=== PATIENT | male | born 1965 | race Caucasian/White ===

== ENCOUNTER 2022-01-22 04:13 | Inpatient (IN) ==
[2022-01-22] MEDS ORDERED: SODIUM CHLORIDE 0.9% 1000ML 1,000 ML IV ONE (04:27)
[2022-01-22] MEDS ORDERED: LORazepam 1 MG/2 ML VIAL IV STA (04:27)
[2022-01-22] MEDS ORDERED: STAT IV Infusion **Titration per Protocol STA (04:27)
--- NOTE | 2022-01-22 04:33 | Emergency Department Note ---
History of Present Illness General Chief complaint: Cardiac Assessment Stated complaint: AFIB Time Seen by Provider: 01/22/22 04:15 Source: patient Mode of arrival: EMS Limitations: no limitations History of Present Illness Provider complaint: Palpitations Onset (ago): hour(s) 2 Associated symptoms: + chest pain and + diaphoresis; no fever/chills, no malaise, no nausea/vomiting, no shortness of breath or no syncope Treatments prior to arrival: other This is a 56-year-old male who presents emergency department via EMS due to concern for palpitations and rapid heart rate. EMS did call for medical command while in route as they found the patient to be in atrial fibrillation with a rapid ventricular response and requested to give the patient Cardizem in route. Patient states he seemed restless and was having a difficult time trying to go to sleep. At 2 AM he noticed a sense of racing heart and palpitations and when attempting to check his own pulse, he found it to be very elevated. Patient states he had some mild chest discomfort, no accompanying shortness of breath. Patient states he felt slightly dizzy and diaphoretic. Denies nausea or vomiting. Patient denies any recent fevers, chills, or illness. Patient states he had a similar episode which did not last this long 2 years ago. He states at that time he was told he had "holiday heart". Patient states he did consume alcohol Saturday and Saturday to the point of being drunk each night. Patient denies any use of alcohol today. Patient states he does feel shaky. Patient states after the first episode he did not have any additional follow-up with cardiology. Patient states there is a significant family history of heart problems. Patient denies any recent change in his medications or diet. Denies caffeine consumption. Pt seen during a time of high acuity and national emergency pandemic while wearing PPE. Home Medications Medication Instructions Recorded Confirmed Type aspirin 81 mg tablet,delayed 81 mg PO DAILY 01/22/22 01/22/22 History release citalopram 20 mg tablet 20 mg PO DAILY 01/22/22 01/22/22 History folic acid 400 mcg tablet 400 mcg PO DAILY 01/22/22 01/22/22 History irbesartan 150 mg tablet 150 mg PO DAILY 01/22/22 01/22/22 History niacin 400 mg (inositol niacinate 1 cap PO DAILY 01/22/22 01/22/22 History 500 mg) capsule (Niacin Flush Free) omeprazole 40 mg capsule,delayed 40 mg PO DAILY 01/22/22 01/22/22 History release folic acid 1 mg tablet 1 mg PO QAM #30 tab 01/23/22 Rx metoprolol succinate 50 mg 50 mg PO DAILY #30 tab 01/23/22 Rx tablet,extended release 24 hr thiamine HCl (vitamin B1) 50 mg 50 mg PO QAM #30 tab 01/23/22 Rx tablet (Vitamin B-1) Allergies Allergy/AdvReac Type Severity Reaction Status Date / Time Penicillins Allergy Unknown RASH Verified 01/22/22 07:00 Sulfa (Sulfonamide Allergy Unknown RASH Verified 01/22/22 07:00 Antibiotics) Past Med/Surg History Medical History GERD (gastroesophageal reflux disease) Hypertension Social History Smoking Status: Never smoker Second Hand Exposure: Yes; Hx Alcohol Use: Yes Alcohol type: beer Hx Substance Use: No Preferred Language: Maldivian Communication Ability: Effective Political Advisor Required: No Beliefs That Will Affect Care: None marital status: Current Living Situation: Spouse How many Children do You have: 0 Feels Safe at Home: Yes Assistive Devices: None Review of Systems A total of 10 systems reviewed and were otherwise negative All systems reviewed & are unremarkable except as noted in HPI & below Physical Exam GENERAL: alert, well appearing, well nourished, no distress, non-toxic EYE EXAM: normal conjunctiva, PERRL and EOM's grossly intact OROPHARYNX: no exudate, no erythema, lips, buccal mucosa, and tongue normal and mucous membranes are moist NECK: supple, no nuchal rigidity, no adenopathy, non-tender LUNGS: Clear to auscultation. Normal chest wall mechanics, no w/r/r HEART: no murmurs, S1 normal and S2 normal, tachycardia noted on telemetry that appears to be atrial fibrillation ABDOMEN: abdomen soft, non-tender, normo-active bowel sounds, no masses, no rebound or guarding. BACK: Back is symmetrical on inspection and there is no deformity, no midline tenderness, no CVA tenderness. SKIN: no rashes and no bruising UPPER EXTREMITIES: upper extremities are grossly normal. FROM, nml pulses b/l. LOWER EXTREMITIES: No pitting edema. FROM, nml pulses b/l. NEURO EXAM: Normal sensorium, cranial nerves II-XII grossly intact, normal speech, no gross weakness of arms, no gross weakness of legs. Patient appears tremulous. Gross sensation intact. Course Administered Medications Discontinued Medications Folic Acid (Folic Acid 1 Mg Tab) 1 mg PO QAM [facility] Stop: 02/21/22 08:59 Last Admin: 01/23/22 08:01 Dose: 1 mg Documented by: [id number] Admin: 01/22/22 10:23 Dose: 1 mg Documented by: [id number] Heparin Sodium (Porcine) (Heparin Sod (Porcine) 1000 Unit/Ml) 4,000 units IV NOW ONE Stop: 01/22/22 06:31 Last Admin: 01/22/22 06:45 Dose: 4,000 units Documented by: [id number] Cosigned by: [id number] Heparin Sodium (Porcine) (Heparin Sod (Porcine) 1000 Unit/Ml) Confirm Administe red Dose 1,000 units .ROUTE .STK-MED ONE Stop: 01/22/22 14:33 Last Admin: 01/22/22 14:33 Dose: 3,000 units Documented by: [id number] Cosigned by: [id number] Heparin Sodium/Dextrose (Heparin Iv Adult Wt-Based Low-Dose With Bolus Protocol) 1 ea N/A NOW [facility]; Protocol Stop: 01/22/22 05:53 Last Admin: 01/22/22 06:57 Dose: Not Given Documented by: [id number] Sodium Chloride (Nss 1000ml) 1,000 mls @ 999 mls/hr IV .Q1H1M ONE Stop: 01/22/22 05:27 Last Infusion: 01/22/22 05:46 Dose: 0 mls/hr Documented by: [id number] Admin: 01/22/22 04:41 Dose: 999 mls/hr Documented by: [id number] Diltiazem HCl 125 mg/ Dextrose 125 mls @ 10 mls/hr IV .[id number] [facility]; Protocol Stop: 02/21/22 04:29 Last Admin: 01/22/22 18:32 Dose: Not Given Documented by: [id number] Titration: 01/22/22 10:25 Dose: 0 mg/hr, 0 mls/hr Documented by: [id number] Cosigned by: [id number] Titration: 01/22/22 07:24 Dose: 15 mg/hr, 15 mls/hr Documented by: [id number] Cosigned by: [id number] Titration: 01/22/22 05:11 Dose: 10 mg/hr, 10 mls/hr Documented by: [id number] Cosigned by: [id number] Admin: 01/22/22 04:44 Dose: 5 mg/hr, 5 mls/hr Documented by: [id number] Cosigned by: [id number] Lorazepam (Ativan) 1 mg in 2 mls @ 2 mls/min IV NOW STA Stop: 01/22/22 04:28 Last Admin: 01/22/22 04:36 Dose: 2 mls/min Documented by: [id number] Magnesium Sulfate/Dextrose (Magnesium Sulfate / D5w) 1 gm in 100 mls @ 100 mls/hr IV Q1H [facility] Stop: 01/22/22 07:24 Last Infusion: 01/22/22 07:41 Dose: 0 mls/hr Documented by: [id number] Admin: 01/22/22 06:37 Dose: 100 mls/hr Documented by: [id number] Infusion: 01/22/22 06:36 Dose: 0 mls/hr Documented by: [id number] Admin: 01/22/22 05:34 Dose: 100 mls/hr Documented by: [id number] Heparin Sodium/Dextrose (Heparin Sodium/Dextrose) 25,000 units in 500 mls @ 24 mls/hr IV .[id number] [facility]; Protocol Stop: 02/21/22 06:14 Last Titration: 01/23/22 14:10 Dose: 0 units/hr, 0 mls/hr Documented by: [id number] Cosigned by: [id number] Titration: 01/23/22 06:53 Dose: 1,200 units/hr, 24 mls/hr Documented by: [id number] Cosigned by: [id number] Admin: 01/23/22 05:47 Dose: 1,200 units/hr, 24 mls/hr Documented by: [id number] Cosigned by: [id number] Titration: 01/23/22 05:47 Dose: 1,200 units/hr, 24 mls/hr Documented by: [id number] Cosigned by: [id number] Titration: 01/22/22 21:18 Dose: 1,200 units/hr, 24 mls/hr Documented by: [id number] Cosigned by: [id number] Titration: 01/22/22 14:33 Dose: 1,050 units/hr, 21 mls/hr Documented by: [id number] Cosigned by: [id number] Admin: 01/22/22 06:45 Dose: 900 units/hr, 18 mls/hr Documented by: [id number] Cosigned by: [id number] Sodium Chloride (Nss 1000ml) 1,000 mls @ 100 mls/hr IV .Q10H [facility] Stop: 01/22/22 17:53 Last Infusion: 01/22/22 18:48 Dose: 0 mls/hr Documented by: [id number] Admin: 01/22/22 08:44 Dose: 100 mls/hr Documented by: [id number] Heparin Sodium (Porcine) 3,000 (units/ Syringe) 3 mls @ 10 mls/min IV ONE ONE Stop: 01/22/22 20:46 Last Admin: 01/22/22 21:18 Dose: 10 mls/min Documented by: [id number] Cosigned by: [id number] Metoprolol Tartrate (Metoprolol Tartrate 25 Mg Tab) 25 mg PO BID [facility] Stop: 02/21/22 10:59 Last Admin: 01/23/22 08:01 Dose: 25 mg Documented by: [id number] Admin: 01/22/22 20:28 Dose: 25 mg Documented by: [id number] Admin: 01/22/22 11:05 Dose: 25 mg Documented by: [id number] Miscellaneous (Stat Iv Infusion Titration Per Protocol) 1 ea N/A NOW STA Stop: 01/22/22 04:28 Last Admin: 01/22/22 04:44 Dose: 1 ea Documented by: [id number] Pantoprazole Sodium (Pantoprazole 40 Mg Tab) 40 mg PO DAILY [facility] Stop: 02/21/22 08:59 Last Admin: 01/23/22 10:21 Dose: 40 mg Documented by: [id number] Admin: 01/22/22 10:22 Dose: 40 mg Documented by: [id number] Potassium Chloride (Potassium Chloride Crtab 20 Meq Tabcr) 40 meq PO NOW STA Stop: 01/22/22 05:26 Last Admin: 01/22/22 05:34 Dose: 40 meq Documented by: [id number] Thiamine HCl (Thiamine Hcl 50 Mg Tablet) 50 mg PO QAM [facility] Stop: 02/21/22 08:59 Last Admin: 01/23/22 08:01 Dose: 50 mg Documented by: [id number] Admin: 01/22/22 10:23 Dose: 50 mg Documented by: [id number] Critical Care Time Critical Care Time: Yes Total Critical Care Time: 40 Critical care of 40 min performed to assess and manage high likelihood of life-threatening dysrhythmia, involving labs and imaging performed with assessment to evaluate a.fib diagnosis with frequent reassessment. This time includes bedside time, treatment discussions with patient/family/consultants, documentation time and excludes procedure time. Medical Decision Making Differential Diagnosis Differential diagnosis includes etiologies such as premature contractions, electrolyte abnormality, cardiac dysrhythmia, thyroid dysfunction, pulmonary embolism, infection, gastrointestinal, as well as others were entertained. Medical Records Attestation: I reviewed the patient's medical records. Home Medications Current Medication List: was personally reviewed by me Laboratory Data Attestation: I reviewed the patient's lab results. Result diagrams: 01/23/22 03:30 01/23/22 03:30 Lab Results 01/22/22 01/22/22 01/22/22 Range/Units 04:28 04:28 04:28 WBC 8.58 (4.8-10.8) K/uL RBC 5.76 (4.7-6.1) M/uL Hgb 17.6 (14.0-18.0) g/dL Hct 49.4 (42-52) % MCV 85.8 (80-100) fL MCH 30.6 (25-34) pg MCHC 35.6 (32-36) g/dL RDW Std Deviation 41.3 (36.4-46.3) fL RDW Coeff of Erasto 13.2 (11.5-14.5) % Plt Count 228 (130-400) K/uL MPV 10.5 H (7.4-10.4) fL Immature Gran % (Auto) 0.2 % Neut % (Auto) 57.9 % Lymph % (Auto) 29.3 % Spencer % (Auto) 11.0 % Eos % (Auto) 1.4 % Baso % (Auto) 0.2 % Neut # (Auto) 4.97 (1.4-6.5) K/uL Lymph # (Auto) 2.51 (1.2-3.4) K/uL Spencer # (Auto) 0.94 H (0.11-0.59) K/uL Eos # (Auto) 0.12 (0-0.5) K/uL Baso # (Auto) 0.02 (0-0.2) K/uL Immature Gran # (Auto) 0.02 (0.00-0.02) K/uL Sodium 142 (136-145) mmol/L Potassium 3.4 L (3.5-5.1) mmol/L Chloride 106 (98-107) mmol/L Carbon Dioxide 22 (21-32) mmol/L Anion Gap 14 H (3-11) BUN 17 (6-23) mg/dl Creatinine 0.97 (0.6-1.4) mg/dl Est Cr Clr Drug Dosing 92.5 ml/min Est GFR ( Amer) 102.2 ml/min Est GFR (Non-Af Amer) 88.1 ml/min BUN/Creatinine Ratio 17.5 (10-20) Glucose 102 H (70-99(Fasting)) mg/dl Calcium 8.4 L (8.5-10.1) mg/dl Magnesium 1.5 L (1.7-2.4) mg/dl Total Bilirubin 1.0 (0.2-1.0) mg/dl AST 26 (13-39) U/L ALT 39 (7-52) U/L Alkaline Phosphatase 63 (34-104) U/L Troponin I 0.03 (0-0.04) ng/ml Total Protein 7.0 (6.0-8.3) gm/dl Albumin 4.5 (3.4-5.0) gm/dl Globulin 2.5 (2.5-4.0) gm/dl Albumin/Globulin Ratio 1.8 (0.9-2) TSH 3.806 (0.300-4.500) uIu/ml Urine Color Urine Appearance (Clear) Urine pH (4.5-7.5) Ur Specific [place] (1.000-1.030) Urine Protein (Negative) Urine Glucose (UA) (Negative) Urine Ketones (Negative) Urine Blood (Negative) Urine Nitrite (Negative) Urine Bilirubin (Negative) Urine Urobilinogen (Negative) Ur Leukocyte Esterase (Negative) Urine Opiates Screen (Neg) Ur Methadone, Qual (Neg) Urine Barbiturates (Neg) Ur Phencyclidine (PCP) (Neg) U Amphetamin/Meth Scrn (Neg) MDMA (Ecstasy) Screen (Neg) U Benzodiazepines Scrn (Neg) Ur Cocaine Metabolite (Neg) U Marijuana (THC) Screen (Neg) SARS-CoV-2, RNA, NAAT (NEGATIVE) 01/22/22 01/22/22 01/22/22 Range/Units 04:28 04:28 06:33 WBC (4.8-10.8) K/uL RBC (4.7-6.1) M/uL Hgb (14.0-18.0) g/dL Hct (42-52) % MCV (80-100) fL MCH (25-34) pg MCHC (32-36) g/dL RDW Std Deviation (36.4-46.3) fL RDW Coeff of Erasto (11.5-14.5) % Plt Count (130-400) K/uL MPV (7.4-10.4) fL Immature Gran % (Auto) % Neut % (Auto) % Lymph % (Auto) % Spencer % (Auto) % Eos % (Auto) % Baso % (Auto) % Neut # (Auto) (1.4-6.5) K/uL Lymph # (Auto) (1.2-3.4) K/uL Spencer # (Auto) (0.11-0.59) K/uL Eos # (Auto) (0-0.5) K/uL Baso # (Auto) (0-0.2) K/uL Immature Gran # (Auto) (0.00-0.02) K/uL Sodium (136-145) mmol/L Potassium (3.5-5.1) mmol/L Chloride (98-107) mmol/L Carbon Dioxide (21-32) mmol/L Anion Gap (3-11) BUN (6-23) mg/dl Creatinine (0.6-1.4) mg/dl Est Cr Clr Drug Dosing ml/min Est GFR ( Amer) ml/min Est GFR (Non-Af Amer) ml/min BUN/Creatinine Ratio (10-20) Glucose (70-99(Fasting)) mg/dl Calcium (8.5-10.1) mg/dl Magnesium (1.7-2.4) mg/dl Total Bilirubin (0.2-1.0) mg/dl AST (13-39) U/L ALT (7-52) U/L Alkaline Phosphatase (34-104) U/L Troponin I (0-0.04) ng/ml Total Protein (6.0-8.3) gm/dl Albumin (3.4-5.0) gm/dl Globulin (2.5-4.0) gm/dl Albumin/Globulin Ratio (0.9-2) TSH (0.300-4.500) uIu/ml Urine Color Yellow Urine Appearance Clear (Clear) Urine pH 5.0 (4.5-7.5) Ur Specific [place] 1.014 (1.000-1.030) Urine Protein Negative (Negative) Urine Glucose (UA) Negative (Negative) Urine Ketones 1+ H (Negative) Urine Blood Negative (Negative) Urine Nitrite Negative (Negative) Urine Bilirubin Negative (Negative) Urine Urobilinogen Negative (Negative) Ur Leukocyte Esterase Negative (Negative) Urine Opiates Screen Neg (Neg) Ur Methadone, Qual Neg (Neg) Urine Barbiturates Neg (Neg) Ur Phencyclidine (PCP) Neg (Neg) U Amphetamin/Meth Scrn Neg (Neg) MDMA (Ecstasy) Screen Neg (Neg) U Benzodiazepines Scrn Neg (Neg) Ur Cocaine Metabolite Neg (Neg) U Marijuana (THC) Screen Neg (Neg) SARS-CoV-2, RNA, NAAT NEGATIVE (NEGATIVE) Imaging Data My Impression: X-ray: I interpreted the following studies. Chest: A single view study of the chest was reviewed and was negative for cardiomegaly, focal infiltrate, effusion, pulmonary edema, or wide mediastinum. ECG Data Attestation: I personally reviewed and interpreted this ECG as follows: Indication: + palpitations Rate (beats per minute): 126 Rhythm: + atrial fibrillation ECG Intervals/blocks: + Normal QRS and + Normal QT ECG [place]: + Normal ECG ST segments: + Nonspecific ST abnormalities MDM Narrative This is a 56 yo male who presents with chest pain and palpitations. Patient found by EMS in a.fib and given cardizem by EMS. Drip continued here. VS otherwise stable. Mild hypokalemia and hypomagnesemia repleted in the ER. I suspect given prior similar episode that his dysrhythmia was precipitated by heavy alcohol consumption this weekend. No recent illness or trauma. Case discussed with hospitalist. I do not suspect PE, ACS, pericarditis/myocarditis, or occult infection. Patient was hydrated and given ativan for tremors which may be from alcohol withdrawal and less so anxiety over his situation. Patient made aware of all results, verbalized understanding and was in agreement with the plan. An order was placed for continuous cardiac monitoring. The monitor shows a rate of _123_ with a.fib_ rhythm. Impression & Plan Chest pain, Palpitation, Hypomagnesemia, Atrial fibrillation, Alcohol use, Hypokalemia Discharge Plan Visit Data Chief Complaint: Cardiac Assessment Stated Complaint: AFIB ED Provider: Yue Hargrove Discharge Problem: Chest pain, Palpitation, Hypomagnesemia, Atrial fibrillation, Alcohol use, Hypokalemia Patient Disposition: Admitted As Inpatient Discharge Instructions Interventions: ED Discharge Assessment Last Done: 01/22/22 07:55 Discharge Problem: Chest pain Qualifiers: Chest pain type: unspecified Qualified Code(s): R07.9 - Chest pain, unspecified Atrial fibrillation Qualifiers: Atrial fibrillation type: unspecified Qualified Code(s): I48.91 - Unspecified atrial fibrillation
[2022-01-22 04:39] LABS: Basophils # (auto) 0.02 K/uL (0-0.2); Basophils % (auto) 0.2 %; Eosinophils # (auto) 0.12 K/uL (0-0.5); Eosinophils % (auto) 1.4 %; Hematocrit (blood only) 49.4 % (42-52); Hemoglobin 17.6 g/dL (14.0-18.0); Immature Granulocytes # (auto) 0.02 K/uL (0.00-0.02); Immature Granulocytes % (auto) 0.2 %; Lymphocytes # (auto) 2.51 K/uL (1.2-3.4); Lymphocytes % (auto) 29.3 %; Mean Corpuscular Hemoglobin 30.6 pg (25-34); Mean Corpuscular Hgb Conc 35.6 g/dL (32-36); Mean Corpuscular Volume 85.8 fL (80-100); Mean Platelet Volume 10.5 fL (7.4-10.4); Monocytes # (auto) 0.94 K/uL (0.11-0.59); Neutrophils # (auto) 4.97 K/uL (1.4-6.5); Neutrophils % (auto) 57.9 %; Platelet Count 228 K/uL (130-400); RDW Coefficient of Variation 13.2 % (11.5-14.5); RDW Standard Deviation 41.3 fL (36.4-46.3); Red Blood Count 5.76 M/uL (4.7-6.1); White Blood Count 8.58 K/uL (4.8-10.8)
[2022-01-22] MEDS: dilTIAZem HCL 125 MG in DEXTROSE 5% 100 ML IV SCH ×2 (04:44→18:32)
[2022-01-22 04:57] LABS: Appearance Urine Clear (Clear); Bilirubin Urine Negative (Negative); Blood Urine Negative (Negative); Color Urine Yellow; Glucose Urine UA Negative (Negative); Ketones Urine 1+ (Negative); Leukocyte Esterase Urine Negative (Negative); Nitrite Urine Negative (Negative); Protein Urine Negative (Negative); Specific Gravity Urine 1.014 (1.000-1.030); Urobilinogen Urine Negative (Negative)
[2022-01-22 05:01] LABS: Troponin I 0.03 ng/ml (0-0.04)
[2022-01-22 05:06] LABS: Albumin Globulin Ratio 1.8 (0.9-2); Albumin Level 4.5 gm/dl (3.4-5.0); BUN Creatinine Ratio 17.5 (10-20); Calcium 8.4 mg/dl (8.5-10.1); Creatinine Clr Calc Pharmacy 92.5 ml/min; Est GFR (African American) 102.2 ml/min; Est GFR (Non-African American) 88.1 ml/min; Globulin 2.5 gm/dl (2.5-4.0); Magnesium 1.5 mg/dl (1.7-2.4); Potassium 3.4 mmol/L (3.5-5.1)
[2022-01-22 05:15] LABS: Amphetamines+Metham, Urine Neg (Neg); Barbiturates, Urine Neg (Neg); Benzodiazepine, Urine Neg (Neg); Cocaine, Urine Neg (Neg); MDMA (Ecstacy), Urine Neg (Neg); Methadone, Urine Neg (Neg); Opiate, Urine Neg (Neg); Phencyclidine, Urine Neg (Neg)
[2022-01-22] MEDS ORDERED: POTASSIUM CHLORIDE CRTAB 20 MEQ TABCR PO STA (05:25)
[2022-01-22] MEDS: MAGNESIUM SULFATE / D5W 1 GM/100 ML BAG IV SCH ×2 (05:34→06:37)
[2022-01-22] MEDS ORDERED: Heparin IV Adult Wt-Based Low-Dose WITH Bolus Protocol STA (05:52)
[2022-01-22] MEDS ORDERED: HEPARIN SOD (PORCINE) 1000 UNIT/ML IV ONE ×2 (06:08→06:30)
[2022-01-22] MEDS: HEPARIN SODIUM/DEXTROSE 25,000 UNITS/500 ML BAG IV SCH (06:45)
[2022-01-22] MEDS ORDERED: NITROGLYCERIN SL 0.4 MG/TAB TAB SL PRN (07:54)
[2022-01-22] MEDS ORDERED: SODIUM CHLORIDE 0.9% 1000ML 1,000 ML IV SCH (07:54)
[2022-01-22] MEDS ORDERED: LORazepam 1 MG/2 ML VIAL IV PRN (07:54)
[2022-01-22] MEDS ORDERED: ONDANSETRON INJ 2 MG/ML 2 ML VIAL IV PRN (07:54)
[2022-01-22] MEDS ORDERED: POLYETHYLENE (MIRALAX) 17 GM PACK PO PRN (07:54)
[2022-01-22] MEDS ORDERED: ACETAMINOPHEN 325 MG TAB PO PRN (07:54)
--- NOTE | 2022-01-22 08:05 | XRay Report ---
SINGLE VIEW CHEST CLINICAL HISTORY: Atypical chest pain. FINDINGS: An AP, portable, upright chest radiograph is compared to study dated 02/15/2014. The heart i s top normal for projection. There is mild bibasilar atelectasis. The lungs and pleural spaces are ot herwise clear. No pneumothorax is seen. The bony thorax is grossly intact. IMPRESSION: No active disease in the chest. ACT 112: Negative or not required by law. Electronically signed by: Phong Simmons M.D. 01/22/2022 8:04 AM
[2022-01-22] MEDS: PANTOprazole 40 MG TAB PO SCH (10:22)
[2022-01-22] MEDS: FOLIC ACID 1 MG TAB PO SCH (10:23)
[2022-01-22] MEDS: THIAMINE HCL 50 MG TABLET PO SCH (10:23)
--- NOTE | 2022-01-22 10:32 | Electrocardiogram Report ---
Test Reason : Blood Pressure : / mmHG Vent. Rate : 126 BPM Atrial Rate : 119 BPM P-R Int : 000 ms QRS Dur : 076 ms QT Int : 316 ms P-R-T Axes : 000 060 053 degrees QTc Int : 457 ms Atrial fibrillation with rapid ventricular response Nonspecific T wave abnormality Abnormal ECG When compared with ECG of 15-FEB-2014 07:37, Atrial fibrillation has replaced Sinus rhythm ST no longer elevated in Lateral leads Nonspecific T wave abnormality, worse in Inferior leads Confirmed by Robbin Gan ([id number]) on 01/22/2022 10:31:52 AM Referred By: REFERRED SELF Confirmed By:Kendall Gan
--- NOTE | 2022-01-22 10:46 | History and Physical Report ---
DATE OF ADMISSION: 01/22/2022. CHIEF COMPLAINT: Rapid AFib. HISTORY OF PRESENT ILLNESS: A 56-year-old male with past medical history significant for hypertension, presents with rapid AFib. The patient says since early in the morning 2:00 a.m., he noticed palpitations and feeling wiped out, weak and was brought in the hospital. En route, he was found to be in AFib and EMS administered Cardizem. Currently, started on Cardizem drip and also heparin drip. He also was found to have hypomagnesemia and hypokalemia, which were replaced in the ER. The patient denies any chest pain, no shortness of breath, no dizziness, no headache, no blurred visions, no earache, no runny nose, no sore throat, no cough, has some nausea, no abdominal pain. Normal bowel and bladder movements. Denies any blood in stools or black stools. No hematuria or burning micturition, no swelling in the legs. Otherwise, ambulates okay. The patient says he drinks 12 to 18 beers every other weekend. Last weekend, he was in a hunting camp and he had alcohol. His urine drug screen is negative. Denies drinking alcohol daily. ALLERGIES: PENICILLIN, SULFA ANTIBIOTICS. PAST MEDICAL HISTORY: As mentioned above. PAST SURGICAL HISTORY: Patellar tear repair. MEDICATIONS: The patient says he takes a blood pressure medication, irbesartan. FAMILY HISTORY: Significant for father and mother had diabetes and heart disease; sister had CHF. SOCIAL HISTORY: Denies any smoking, alcohol every other weekend 12 to 18 beers, does not drink daily. The patient denies any drug use. REVIEW OF SYSTEMS: As per HPI. Rest of the review of systems is negative. PHYSICAL EXAMINATION: GENERAL: The patient is obese, not in acute distress. VITAL SIGNS: Temperature 37, pulse rate 129, respiratory rate 18, blood pressure 123/83, oxygen 92% on room air. HEENT: Pupils equal, round and reactive to light. Oral mucosa moist. NECK: No JVD. No neck masses. CARDIOVASCULAR: S1 and S2 heard. Tachycardia. Irregular rhythm. No murmur, no gallop. RESPIRATORY SYSTEM: Normal AP diameter. No accessory muscle use. No wheezing, no crackles. ABDOMEN: Soft, bowel sounds present, nontender, no distention. CENTRAL NERVOUS SYSTEM: Cranial nerves II-XII grossly intact, nonfocal. EXTREMITIES: No edema, no erythema. LABORATORY DATA: WBC 8.5, hemoglobin 17.6, hematocrit 49.4, platelets 228. Sodium 142, potassium 3.4, chloride 106, bicarbonate 22, BUN 17, creatinine 0.9, serum glucose 102, calcium 8.4, magnesium 1.5, total bilirubin 1.0, AST 26, ALT 39, alkaline phosphatase 63. Troponin I of 0.03. TSH 3.8. Urinalysis, +1 ketones. Urine drug screen negative. SARS-CoV-2 pending. IMAGING: Chest x-ray: No acute findings. EKG: AFib with rate of 126. ASSESSMENT AND PLAN: This is a 56-year-old male who presents with rapid atrial fibrillation. 1. Rapid atrial fibrillation, new onset: Started on Cardizem drip and IV heparin in the Emergency Room, which will be continued. We will follow serial cardiac enzymes, echocardiogram. Keep him n.p.o. until seen by cardiology. Monitor in the telemetry floor. 2. Hypokalemia and hypomagnesemia: Replaced in the Emergency Room, we will follow the repeat laboratories. 3. History of hypertension: Currently getting Cardizem drip. The patient says he is on irbesartan, does not know the dose. We will monitor and adjust the medications. 4. Questionable alcoholism: The patient says he drinks only on every other weekend. When he drinks, he drinks 12 to 18 beers from Saturday to Saturday. Last weekend, he was in a hunting camp and he had alcohol, but he says he does not drink every day, but we will monitor for any alcohol withdrawal. We will place him on IV Ativan p.r.n. and place him on p.o. thiamine and folic acid and closely monitor. 5. Deep venous thrombosis prophylaxis: On IV heparin. DISPOSITION: Closely monitor in the tele floor. PT, OT prior to discharge. Social service to help with discharge planning. Job ID: [id number]
[2022-01-22] MEDS: METOPROLOL TARTRATE 25 MG TAB PO SCH ×2 (11:05→20:28)
--- NOTE | 2022-01-22 11:06 | Cardiology Consultation ---
Date of Consultation January 22, 2022 Assessment & Plan (1) Paroxysmal atrial fibrillation: (2) History of alcohol abuse: (3) Elevated troponin I level: (4) Hypomagnesemia: (5) Hypokalemia: 56 oh patient admitted with symptomatic paroxysmal atrial fibrillation secondary to alcohol consumption. Spontaneously converted to sinus rhythm this morning. Recommend discontinuation of diltiazem and addition of metoprolol tartrate 25 mg twice daily. His chads vas score is 1 due to history of hypertension. This episode of atrial fibrillation is secondary to reversible cause, excessive alcohol intake. Stroke risk discussed. He will continue low- dose aspirin at this time. Resting 2D transthoracic echocardiogram is pending. Troponin is minimally elevated likely due to demand ischemia in the setting of atrial fibrillation with rapid ventricular response. Recommend outpatient stress testing for further risk stratification. Continue IV hydration and electrolyte replacement as per internal medicine. Thank you for allow me to participate in the care of your patient. History of Present Illness Reason for Consultation: Atrial fibrillation with rapid ventricular response. Requesting Physician: Dr. Malik Attending Physician: Jacquie Malik MD History of Present Illness 56-year-old patient presents emergency department with palpitations. ECG demonstrating atrial fibrillation with rapid ventricular response. Patient denies chest pain. Serum troponin minimally elevated at 0.06. Admits to excessive alcohol intake over the weekend. No symptoms on Saturday or Saturday, however, awoke at approximately 2 AM with palpitations, lightheadedness, and generalized feeling of unwellness. Denies syncope or near syncope. No orthopnea, PND, or lower extremity edema. 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 Denies any exertional chest pain or unusual shortness of breath. No history of coronary disease, congestive heart failure, cerebrovascular accident, or diabetes. Takes ARB daily for hypertension. Admits to a previous episode of "holiday heart" several years ago after consuming alcohol. No recurrent palpitations over the past few years voices concern regarding family history of "heart problems". Sister with congestive heart failure and stents. Both parents had coronary artery disease. He had a brother who of a DVT. States he was evaluated for blood clots after his brother . Currently resting comfortably. Telemetry feels sinus rhythm. No chest discomfort or shortness of breath. Intravenous diltiazem infusing at 50 mg/h, IV heparin infusing in addition to normal saline. Allergies Allergy/AdvReac Type Severity Reaction Status Date / Time Penicillins Allergy Unknown RASH Verified 01/22/22 07:00 Sulfa (Sulfonamide Allergy Unknown RASH Verified 01/22/22 07:00 Antibiotics) Home Medications Medication Instructions Recorded Confirmed Type aspirin 81 mg tablet,delayed 81 mg PO DAILY 01/22/22 01/22/22 History release citalopram 20 mg tablet 20 mg PO DAILY 01/22/22 01/22/22 History folic acid 400 mcg tablet 400 mcg PO DAILY 01/22/22 01/22/22 History irbesartan 150 mg tablet 150 mg PO DAILY 01/22/22 01/22/22 History niacin 400 mg (inositol niacinate 1 cap PO DAILY 01/22/22 01/22/22 History 500 mg) capsule (Niacin Flush Free) omeprazole 40 mg capsule,delayed 40 mg PO DAILY 01/22/22 01/22/22 History release Patient History Medical History GERD (gastroesophageal reflux disease) Hypertension Social History Smoking Status: Never smoker Second Hand Exposure: Yes; Do You Dip or Chew Tobacco: Yes; Tobacco Cessation Education Requested by Patient: No Hx Alcohol Use: Yes Alcohol type: beer Hx Substance Use: No Preferred Language: Azerbaijani Communication Ability: Effective Bank Worker Required: No Beliefs That Will Affect Care: None marital status: Current Living Situation: Spouse How many Children do You have: 0 Other Information That Helps Us Care for You: No Feels Safe at Home: Yes Safety Concerns: Feels Safe At This Time Assistive Devices: None Review of Systems Review of Systems: All systems reviewed & are unremarkable except as noted in Subjective Physical Exam Constitutional: well developed, well nourished and + obese Respiratory: normal respiratory effort; no respiratory distress, no labored breathing and no retractions Auscultation: lungs clear to auscultation bilaterally; no crackles, no rales, no rhonchi and no wheezes Cardiovascular: Rate/Rhythm: regular rate and regular rhythm Heart Sounds: normal S1 and normal S2; no murmur Vessels: radial pulses present; no JVD and no carotid bruit Extremities: no edema Gastrointestinal (Abdomen): Inspection/Auscultation: abdomen normal to inspect ion and normal bowel sounds; abdomen not distended Percussion/Palpation: abdomen soft; abdomen nontender, no guarding and abdomen not rigid Neurologic: CN's II-XI intact bilaterally and moves all extremities; no focal motor deficits Psychiatric: A+Ox3, euthymic affect Results & Data ([facility]) Vital Signs (Past 12 Hours) Vital Signs Temp Pulse Pulse Resp BP BP Pulse Ox 01/22/22 10:00 70 16 142/82 H 95 01/22/22 09:20 102 H 19 95 01/22/22 09:10 117 H 16 97 01/22/22 09:00 109 H 15 148/87 H 95 01/22/22 08:50 107 H 17 95 01/22/22 08:47 106 H 12 133/89 96 01/22/22 08:45 104 H 16 133/89 95 01/22/22 08:40 114 H 17 95 01/22/22 08:30 113 H 16 125/97 94 01/22/22 08:20 109 H 16 95 01/22/22 08:10 108 H 20 95 01/22/22 08:00 123 H 18 126/92 95 01/22/22 07:54 01/22/22 07:50 124 H 17 95 01/22/22 07:45 121 H 16 135/86 95 01/22/22 07:40 123 H 18 96 01/22/22 07:30 123 H 18 155/96 H 96 01/22/22 07:25 123 H 19 124/89 95 01/22/22 07:05 123 H 14 160/86 H 95 01/22/22 05:45 129 H 123/83 01/22/22 05:23 119 H 119/100 01/22/22 05:04 109 H 104/81 92 01/22/22 04:30 128 H 123/89 01/22/22 04:23 37.0 C 121 H 18 139/103 H 92 Pulse Ox 01/22/22 10:00 01/22/22 09:20 01/22/22 09:10 01/22/22 09:00 01/22/22 08:50 01/22/22 08:47 01/22/22 08:45 01/22/22 08:40 01/22/22 08:30 01/22/22 08:20 01/22/22 08:10 01/22/22 08:00 01/22/22 07:54 95 01/22/22 07:50 01/22/22 07:45 01/22/22 07:40 01/22/22 07:30 01/22/22 07:25 01/22/22 07:05 01/22/22 05:45 01/22/22 05:23 01/22/22 05:04 01/22/22 04:30 01/22/22 04:23
[2022-01-22] MEDS ORDERED: LORazepam 1 MG IV PRN (12:02)
[2022-01-22 13:06] LABS: Partial Thromboplastin Ratio 1.3; Partial Thromboplastin Time 33.5 Seconds (21.0-31.0)
[2022-01-22] MEDS ORDERED: HEPARIN SOD (PORCINE) 1000 UNIT/ML ONE (14:32)
--- NOTE | 2022-01-22 16:14 | Communication Note ---
Date of Service: January 22, 2022 Patient seen and examined Denied any complaints at this time Afib has reverted to sinus rhythm Monitor and replete electrolytes Counselled patient on alcohol use Cardiology recommendations noted Awaiting Echo Agree with plans as detailed in H&P by Dr Rios this morning
[2022-01-22 20:39] LABS: Partial Thromboplastin Ratio 1.4; Partial Thromboplastin Time 36.2 Seconds (21.0-31.0)
[2022-01-22] MEDS ORDERED: HEPARIN IV BOLUS 3,000 UNITS in SYRINGE 0 ML IV ONE (20:45)
[2022-01-23 04:00] LABS: Basophils # (auto) 0.02 K/uL (0-0.2); Basophils % (auto) 0.2 %; Eosinophils # (auto) 0.33 K/uL (0-0.5); Eosinophils % (auto) 3.8 %; Hemoglobin 15.9 g/dL (14.0-18.0); Immature Granulocytes # (auto) 0.02 K/uL (0.00-0.02); Immature Granulocytes % (auto) 0.2 %; Lymphocytes # (auto) 2.94 K/uL (1.2-3.4); Lymphocytes % (auto) 33.6 %; Mean Corpuscular Hemoglobin 30.5 pg (25-34); Mean Corpuscular Hgb Conc 35.3 g/dL (32-36); Mean Corpuscular Volume 86.4 fL (80-100); Mean Platelet Volume 10.7 fL (7.4-10.4); Monocytes # (auto) 0.93 K/uL (0.11-0.59); Monocytes % (auto) 10.6 %; Neutrophils # (auto) 4.51 K/uL (1.4-6.5); Neutrophils % (auto) 51.6 %; Platelet Count 178 K/uL (130-400); RDW Coefficient of Variation 13.2 % (11.5-14.5); Red Blood Count 5.21 M/uL (4.7-6.1); White Blood Count 8.75 K/uL (4.8-10.8)
[2022-01-23 04:26] LABS: BUN Creatinine Ratio 18.3 (10-20); Calcium 7.9 mg/dl (8.5-10.1); Creatinine Clr Calc Pharmacy 49.7 ml/min; Est GFR (African American) 116.2 ml/min; Est GFR (Non-African American) 100.3 ml/min; Partial Thromboplastin Ratio 1.8; Potassium 3.8 mmol/L (3.5-5.1)
[2022-01-23 04:29] LABS: Partial Thromboplastin Time 48.1 Seconds (21.0-31.0)
[2022-01-23] MEDS: HEPARIN SODIUM/DEXTROSE 25,000 UNITS/500 ML BAG IV SCH (05:47)
[2022-01-23] MEDS: METOPROLOL TARTRATE 25 MG TAB PO SCH (08:01)
[2022-01-23] MEDS: FOLIC ACID 1 MG TAB PO SCH (08:01)
[2022-01-23] MEDS: THIAMINE HCL 50 MG TABLET PO SCH (08:01)
[2022-01-23] MEDS: PANTOprazole 40 MG TAB PO SCH (10:21)
--- NOTE | 2022-01-23 10:46 | Electrocardiogram Report ---
Test Reason : Blood Pressure : / mmHG Vent. Rate : 070 BPM Atrial Rate : 070 BPM P-R Int : 162 ms QRS Dur : 088 ms QT Int : 422 ms P-R-T Axes : 026 055 046 degrees QTc Int : 455 ms Normal sinus rhythm Normal ECG When compared with ECG of 15-FEB-2014 07:37, No significant change was found Confirmed by Robbin Gan ([id number]) on 01/23/2022 10:45:56 AM Referred By: REFERRED SELF Confirmed By:Kendall Gan
--- NOTE | 2022-01-23 11:39 | Cardiology Progress Note ---
Date of Service January 23, 2022 Assessment & Plan (1) Paroxysmal atrial fibrillation: (2) History of alcohol abuse: (3) Elevated troponin I level: (4) Hypomagnesemia: (5) Hypokalemia: Plan: 56-year-old patient admitted with "holiday heart". Spontaneous conversion to normal sinus rhythm 01/22/2022. His chads vas score is 1 due to history of hypertension. This episode of atrial fibrillation is secondary to reversible cause, excessive alcohol intake. Stroke risk discussed. Continue low-dose aspirin at this time. Transition metoprolol tartrate to Toprol-XL 50 mg once daily. Normal left ventricular systolic function without significant valvular pathology per 2D echocardiogram. Patient without anginal symptoms. With mildly elevated troponin family history, recommend outpatient exercise stress testing for further risk stratification. Patient prefers cardiology follow-up through the [facility]. I advised him to contact me with any further concerns/questions. Thank you for allow me to participate in the care of your patient. Admission and Anticipated Discharge Date Admission Date: January 22, 2022 Subjective Patient seen and examined the bedside. Feeling well this morning. No recurrent atrial fibrillation overnight. Tolerating metoprolol. Has questions regarding administration of lisinopril during hospitalization. Taking ARB in the outpatient setting. Denies chest pain or shortness of breath. No orthopnea, PND, or palpitations. Review of Systems Review of Systems: All systems reviewed & are unremarkable except as noted in Subjective Physical Exam Constitutional: well nourished, + acute distress and + obese Respiratory: normal respiratory effort; no respiratory distress and no labored breathing Auscultation: lungs clear to auscultation bilaterally; no crackles, no rales, no rhonchi and no wheezes Cardiovascular: Rate/Rhythm: regular rate and regular rhythm Heart Sounds: normal S1 and normal S2; no murmur Vessels: radial pulses present; no JVD and no carotid bruit Extremities: no edema Gastrointestinal (Abdomen): Inspection/Auscultation: abdomen normal to inspection and normal bowel sounds; abdomen not distended Percussion/Palpation: abdomen soft; abdomen nontender, no guarding and abdomen not rigid Neurologic: CN's II-XI intact bilaterally and moves all extremities; no focal motor deficits Psychiatric: A+Ox3, euthymic affect Results & Data ([facility]) Vital Signs (Past 12 Hours) Vital Signs Temp Pulse Pulse Resp BP Pulse Ox 01/23/22 08:18 36.5 C 88 18 159/71 H 95 01/23/22 07:23 64 01/23/22 03:23 36.5 C 61 18 166/83 H 96 01/23/22 01:49 74
--- NOTE | 2022-01-23 14:11 | Discharge Summary ---
Date of Service January 23, 2022 Admission HPI Per Admitting Provider A 56-year-old male with past medical history significant for hypertension, presents with rapid AFib. The patient says since early in the morning 2:00 a.m., he noticed palpitations and feeling wiped out, weak and was brought in the hospital. En route, he was found to be in AFib and EMS administered Cardizem. Currently, started on Cardizem drip and also heparin drip. He also was found to have hypomagnesemia and hypokalemia, which were replaced in the ER. The patient denies any chest pain, no shortness of breath, no dizziness, no headache, no blurred visions, no earache, no runny nose, no sore throat, no cough, has some nausea, no abdominal pain. Normal bowel and bladder movements. Denies any blood in stools or black stools. No hematuria or burning micturition, no swelling in the legs. Otherwise, ambulates okay. The patient says he drinks 12 to 18 beers every other weekend. Last weekend, he was in [place] and he had alcohol. His urine drug screen is negative. Denies drinking alcohol daily. Admission Exam Per Admitting Provider GENERAL: The patient is obese, not in acute distress. VITAL SIGNS: Temperature 37, pulse rate 129, respiratory rate 18, blood pressure 123/83, oxygen 92% on room air. HEENT: Pupils equal, round and reactive to light. Oral mucosa moist. NECK: No JVD. No neck masses. CARDIOVASCULAR: S1 and S2 heard. Tachycardia. Irregular rhythm. No murmur, no gallop. RESPIRATORY SYSTEM: Normal AP diameter. No accessory muscle use. No wheezing, no crackles. ABDOMEN: Soft, bowel sounds present, nontender, no distention. CENTRAL NERVOUS SYSTEM: Cranial nerves II-XII grossly intact, nonfocal. EXTREMITIES: No edema, no erythema. Principal Diagnosis Paroxysmal atrial fibrillation Hypomagnesemia Alcohol use Discharge Exam Constitutional + well hydrated and + obese; no acute distress Eyes PERRL, conjunctivae normal, anicteric sclerae ENMT external ear and nose normal, oropharynx normal Respiratory normal respiratory effort, lungs clear to auscultation Cardiovascular RRR, no murmur, no edema Gastrointestinal (Abdomen) normal bowel sounds, soft, nontender, no hepatosplenomegaly Musculoskeletal no cyanosis or clubbing, extremities motor strength 5/5 Neurologic PERRL, EOMI, accommodation nl, no face palsy, no dysarthria Psychiatric A+Ox3, euthymic affect Discharge Data Allergies Allergy/AdvReac Type Severity Reaction Status Date / Time Penicillins Allergy Unknown RASH Verified 01/22/22 07:00 Sulfa (Sulfonamide Allergy Unknown RASH Verified 01/22/22 07:00 Antibiotics) Consultations 01/22/22 05:56 ED Decision to Admit Stat 01/22/22 08:00 Consult Cardiology Routine Hospital Course (1) Paroxysmal atrial fibrillation: (2) Hypokalemia: (3) Heart palpitations: (4) Hypomagnesemia: Patient presented with palpitations in the setting of excessive alcohol use Was found to be in Afib w/RVR Was evaluated by Cardiology Echo showed EF 55-60%, LV wall motion is normal, G1DD, no significant valvular pathology CHADSVAsc 1. Advised to continue ASA 81mg daily Started on metoprolol succinate 50mg daily Advised to quit alcohol use Patient to follow up with Cardiology Total Time Total Time Spent Total Time Spent (In Minutes): 35 Total Time Includes: Examination of the Patient, Discharge Planning, Medication Reconciliation and Communication With Other Providers Discharge Plan Discharge Items Patient Disposition: Home - Self-Care Reason For Visit: PALPITATIONS Discharge Diagnosis: Paroxysmal atrial fibrillation Hypomagnesemia Activity: Resume your previous activity Non-emergency contact: Primary Care Provider Call non-emergency contact if: you have any medication questions and your symptoms worsen Follow-up/Referrals: PCP,NO [Primary Care Provider] - Diet: Heart Healthy Addtl Attending Provider Instructions: Mr Berry. Hatfield came to the hospital complaining of palpitation. You were evaluated and found to have Atrial fibrillation. This reverted to sinus rhythm. Please stop drinking alcohol as we discussed. You were started on metoprolol succinate 50mg once a day. It is important that you follow up with Cardiology outpatient. It was a pleasure taking care of you. Pending Studies at Discharge: No Stand-Alone Forms: [employer], Work/School Release, Smoking Cessation Medications and DC Order Prescriptions: New metoprolol succinate 50 mg tablet extended release 24 hr 50 mg PO DAILY Qty: 30 RF: 0 folic acid 1 mg Tablet 1 mg PO QAM Qty: 30 RF: 0 thiamine HCl (vitamin B1) [Vitamin B-1] 50 mg Tablet 50 mg PO QAM Qty: 30 RF: 0 Continued omeprazole 40 mg capsule,delayed release(DR/EC) 40 mg PO DAILY RF: 0 citalopram 20 mg tablet 20 mg PO DAILY RF: 0 irbesartan 150 mg tablet 150 mg PO DAILY RF: 0 niacin (inositol niacinate) [Niacin Flush Free] 400 mg niacin (500 mg) Capsule 1 cap PO DAILY RF: 0 folic acid 400 mcg Tablet 400 mcg PO DAILY RF: 0 aspirin 81 mg Tablet,Delayed Release (Dr/Ec) 81 mg PO DAILY RF: 0 Discharge Orders: Discharge Order (Routine); Ordered 01/23/22 Ordered By: Jacquie Villeda/Other Patient Handouts: Metoprolol Oral Tablet 50 mg Admission Data Admit Date/Time: 01/22/22 06:44 Attending Provider: Jacquie Malik I. Admit Provider: Arnold Rios Primary Care Provider: PCP,NO Other Providers: Arnold Rios ; Afshin Dockery ; Jonah Smith ; Erlin Peter ; Scott Montes ; Derrick Hooks ; Trent Groves ; Randa Acosta ; Yuko Grande ; Sangeetha Kearns ; Jose Marcum Other Interventions: Discharge Summary Assessment (RN) Last Done: 01/23/22 14:50
== END 2022-01-23 16:30 | disposition home or self-care (01) | DRG 309 ==
LOC: ED 04:13 → EDINP 06:44 → 2S 07:55